=== PATIENT | female | born 1990 | race Caucasian/White ===

== ENCOUNTER 2017-08-17 23:01 | Emergency (ER) | payer OTHER ==
[~2017-08-17] VITALS: Ht 154.9 cm; Wt 55.0 kg
[2017-08-17 23:14] VITALS: BP 115/72; PULSE 87; RESP 18; TEMP 98.1; O2SAT 98
[2017-08-18 00:22] LABS: AUTOMATED NEUTROPHIL # 4.2 TH/MM3 (1.8-7.7); BASOPHIL % 0.5 % (0.0-2.0); EOSINOPHIL % 0.7 % (0.0-4.0); HEMO FLAGS DIFF FINAL; LYMPH % 24.6 % (9.0-44.0); LYMPHOCYTE # 1.5 TH/MM3 (1.0-4.8); MEAN CELL VOLUME 94.9 FL (80.0-100.0); MEAN CORPUSCULAR HEMOGLOBIN 32.8 PG (27.0-34.0); MEAN CORPUSCULAR HGB CONC 34.6 % (32.0-36.0); NEUT % 67.2 % (16.0-70.0); PLATELET COUNT 329 TH/MM3 (150-450); RED BLOOD COUNT 4.31 MIL/MM3 (4.00-5.30); RED CELL DISTRIBUTION WIDTH 12.7 % (11.6-17.2); WHITE BLOOD COUNT 6.3 TH/MM3 (4.0-11.0)
[2017-08-18 00:26] LABS: BACTERIA, URINE RARE /hpf; BLOOD, URINE SMALL (NEG); GLUCOSE,URINE NEG (NEG); HYALINE CAST, URINE 4 /lpf (RARE); KETONE, URINE TRACE mg/dL (NEG); MUCUS URINE MANY /lpf (OCC); NITRITE,URINE NEG (NEG); PH, URINE 5.5 (5.0-8.5); RENAL EPITHELIAL CELLS <1 /hpf; SQUAMOUS EPITHELIAL CELL URINE 1 /hpf (0-5); URINE COLOR YELLOW (YELLW/STRAW)
[2017-08-18 00:27] LABS: COMMENT (UR) CULT NOT INDICATED; CULTURE IF INDICATED CULT NOT INDICATED
--- NOTE | 2017-08-18 00:28 | PD ---
HPI Chief Complaint: Psychiatric Symptoms Time Seen by Provider: 00:26 Travel History International Travel<30 days: No Contact w/Intl Traveler<30days: No Traveled to known affect area: No History of Present Illness HPI Patient comes in under a Servin act by police for allegedly making suicidal statements. Patient states that her boyfriend and her were going through breakup when he managed to get her Servin acted. Patient denies any suicidal or homicidal ideations. Patient denies any medical complaints at this time. Denies any chest pain, fevers, shortness of breath, abdominal pain, urgency, loss change in bowel or bladder, or . Denies anything making this better or worse. PFSH Past Medical History Medical History: Denies Significant Hx Diminished Hearing: No Tetanus Vaccination: Unknown ?: Not LMP: 08/15/2017 Past Surgical History Section: Yes Gynecologic Surgery: Yes () Social History Alcohol Use: Yes (occasionally) Tobacco Use: No Substance Use: No Allergies-Medications (Allergen,Severity, Reaction): Coded Allergies: No Known Allergies (Unverified , 08/17/17) Reported Meds & Prescriptions Reported Meds & Active Scripts Active No Active Prescriptions or Reported Medications Review of Systems Except as stated in HPI: all other systems reviewed are Neg Physical Exam Narrative GENERAL: Well-developed, well nourished, in no acute distress, and non-ill appearing. SKIN: Focused skin assessment warm and dry. HEAD: Atraumatic. Normocephalic. EYES: Pupils equal and round. EOMI. No scleral icterus. No injection or drainage. ENT: No nasal bleeding or discharge. Mucous membranes pink and moist. NECK: Trachea midline. Supple. No nuclear rigidity. CARDIOVASCULAR: Regular rate and rhythm. No murmur appreciated. RESPIRATORY: No accessory muscle use. No respiratory distress. Clear to auscultation. Breath sounds equal bilaterally. MUSCULOSKELETAL: No obvious deformities. No clubbing. No cyanosis. No edema. Full range of motion. NEUROLOGICAL: Awake and alert. No obvious cranial nerve deficits. Motor grossly within normal limits. Normal speech. PSYCHIATRIC: Appropriate mood and affect; insight and judgment normal. Data Data Last Documented VS Vital Signs Date Time Temp Pulse Resp B/P (MAP) Pulse Ox O2 Delivery O2 Flow Rate FiO2 08/17/17 23:14 98.1 87 18 115/72 (86) 98 Orders Orders Complete Blood Count With Diff (08/17/17 23:49) Comprehensive Metabolic Panel (08/17/17 23:49) Urinalysis - C+S If Indicated (08/17/17 23:49) Ed Urine Pregnancytest Poc (08/17/17 23:49) Psych Screen (08/17/17 23:49) Drug Screen, Random Urine (08/17/17 23:49) Alcohol (Ethanol) (08/17/17 23:49) Salicylates (Aspirin) (08/18/17 00:10) Tylenol (Acetaminophen) (08/17/17 23:58) Labs Laboratory Tests Test 08/17/17 23:58 White Blood Count 6.3 TH/MM3 Red Blood Count 4.31 MIL/MM3 Hemoglobin 14.2 GM/DL Hematocrit 41.0 % Mean Corpuscular Volume 94.9 FL Mean Corpuscular Hemoglobin 32.8 PG Mean Corpuscular Hemoglobin Concent 34.6 % Red Cell Distribution Width 12.7 % Platelet Count 329 TH/MM3 Mean Platelet Volume 9.3 FL Neutrophils (%) (Auto) 67.2 % Lymphocytes (%) (Auto) 24.6 % Monocytes (%) (Auto) 7.0 % Eosinophils (%) (Auto) 0.7 % Basophils (%) (Auto) 0.5 % Neutrophils # (Auto) 4.2 TH/MM3 Lymphocytes # (Auto) 1.5 TH/MM3 Monocytes # (Auto) 0.4 TH/MM3 Eosinophils # (Auto) 0.0 TH/MM3 Basophils # (Auto) 0.0 TH/MM3 CBC Comment DIFF FINAL Differential Comment Urine Color YELLOW Urine Turbidity HAZY Urine pH 5.5 Urine Specific [place] 1.020 Urine Protein TRACE mg/dL Urine Glucose (UA) NEG mg/dL Urine Ketones TRACE mg/dL Urine Occult Blood SMALL Urine Nitrite NEG Urine Bilirubin NEG Urine Urobilinogen LESS THAN 2.0 MG/DL Urine Leukocyte Esterase TRACE Urine RBC 2 /hpf Urine WBC 4 /hpf Urine Squamous Epithelial Cells 1 /hpf Urine Renal Epithelial Cells <1 /hpf Urine Bacteria RARE /hpf Urine Hyaline Casts 4 /lpf Urine Mucus MANY /lpf Microscopic Urinalysis Comment CULT NOT INDICATED Blood Urea Nitrogen 4 MG/DL Creatinine 0.61 MG/DL Random Glucose 87 MG/DL Total Protein 8.1 GM/DL Albumin 3.9 GM/DL Calcium Level 9.1 MG/DL Alkaline Phosphatase 56 U/L Aspartate Amino Transf (AST/SGOT) 11 U/L Alanine Aminotransferase (ALT/SGPT) 14 U/L Total Bilirubin 0.4 MG/DL Sodium Level 143 MEQ/L Potassium Level 3.7 MEQ/L Chloride Level 107 MEQ/L Carbon Dioxide Level 27.2 MEQ/L Anion Gap 9 MEQ/L Estimat Glomerular Filtration Rate 119 ML/MIN Salicylates Level LESS THAN 1.7 MG/DL Urine Opiates Screen NEG Acetaminophen Level LESS THAN 2.0 MCG/ML Urine Barbiturates Screen NEG Urine Amphetamines Screen POS Urine Benzodiazepines Screen NEG Urine Cocaine Screen NEG Urine Cannabinoids Screen NEG Ethyl Alcohol Level 74 MG/DL MDM Medical Decision Making Medical Screen Exam Complete: Yes Emergency Medical Condition: Yes Differential Diagnosis Homicidal, suicidal, metabolic disturbance, alcohol induced mood disorder, substance induced mood disorder, acute psychosis, other Narrative Course Patient was seen and examined. Labs were obtained and reviewed. Patient medically cleared for further treatment and evaluation by psych. Final disposition per psych. Diagnosis Primary Impression: Medical clearance for psychiatric admission Scripts No Active Prescriptions or Reported Meds Condition: Janusz Whitten Aug 18, 2017 00:28
[2017-08-18 00:41] LABS: ALT (GPT) 14 U/L (10-53); ANION GAP 9 MEQ/L (5-15); AST (GOT) 11 U/L (15-37); BICARBONATE 27.2 MEQ/L (21.0-32.0); BLOOD UREA NITROGEN 4 MG/DL (7-18); CHLORIDE 107 MEQ/L (98-107); GLOMERULAR FILTRATION RATE 119 ML/MIN (>89); POTASSIUM 3.7 MEQ/L (3.5-5.1); SODIUM (NA) 143 MEQ/L (136-145)
[2017-08-18 00:44] LABS: ALKALINE PHOSPHATASE 56 U/L (45-117); TOTAL BILIRUBIN ADULT 0.4 MG/DL (0.2-1.0)
[2017-08-18 00:45] LABS: ACETAMINOPHEN LESS THAN 2.0 MCG/ML (10.0-30.0); ALCOHOL 74 MG/DL (0-5)
[2017-08-18 06:28] VITALS: BP 92/55; PULSE 79; RESP 16; O2SAT 100
--- NOTE | 2017-08-18 14:23 | PD ---
History of Present Illness Chief Complaint: Psychiatric Symptoms Time Seen by Provider: 14:00 Travel History International Travel<30 Days: No Contact w/Intl Traveler<30days: No Known affected area: No Legal Status Legal Status: Servin Act Servin Act Signed By: Dmitri Richardson History of Present Illness: History of Present Illness HPI Patient is a 26-year-old female with no previous psychiatric history who comes in under a Servin act initiated by police . The Servin act alleges that the police responded to a call in reference to a suicidal person. When they arrived the patient's boyfriend reported that he and Linda were in the middle of breaking up and that the patient had made several statements that she was going to harm herself. He provided text messages that were allegedly written from her which stated to him" who was going to take care of my daughter when I' m gone." She denies that she made these statements as well as she denies any suicidal or homicidal ideation. She made no attempts at harming herself and denies any cutting or self-injurious behaviors. She states that she has been arguing with her boyfriend for some time. Electronic medical record is reviewed. No previous history with [facility] psychiatry Department. Current toxicology is positive for amphetamines. She denies any use of such. BAL on arrival is 74. Patient was monitored and secure environment and presented no behavioral concerns and no suicidality. She denies any previous psychiatric history. Denies any depression or anxiety Has no access to guns or any weapons. She is requesting to be discharged and states that her daughter has a soccer game today of 5 p. m. and that she wants to be able to go to that game. [facility] Past Medical History Medical History: Denies Significant Hx Diminished Hearing: No Tetanus Vaccination: Unknown ?: Not LMP: 08/15/2017 Past Surgical History Section: Yes Gynecologic Surgery: Yes () Psychiatric History Psychiatric History Hx Psychiatric Treatment: DENIES any previous. No previous history of suicide attempts. History of Inpatient Treatment: No Guns or firearms in home: No Social History Born and raised in [facility]. Single. 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 Lives with boyfriend and her 4-year-old daughter. Hx Alcohol Use: Yes (occasionally) Hx Tobacco Use: No Hx Substance Use: No (denies any history of any substance use despite positive amphetamine in her toxicology.) Substance Use Type: Alcohol, Amphetamines-Stimulants Hx of Substance Use Treatment: No Family Psychiatric History None reported Allergies-Medications (Allergen,Severity, Reaction): Coded Allergies: No Known Allergies (Unverified , 08/17/17) Reported Meds & Prescriptions Reported Meds & Active Scripts Active No Active Prescriptions or Reported Medications Review of Systems Except as stated in HPI: all other systems reviewed are Neg Mental Status Examination Appearance: Appropriate (maintaining basic hygiene) Consciousness: Alert Orientation: x4 Motor Activity: Normal gait Speech: Unremarkable Language: Adequate Fund of Knowledge: Adequate Attention and Concentration: Adequate Memory: Unremarkable Mood: Appropriate Affect: Appropriate Thought Process & Associations: Intact Thought Content: Appropriate Hallucination Type: None Delusion Type: None Suicidal Ideation: No Suicidal Plan: No Suicidal Intention: No Homicidal Ideation: No Homicidal Plan: No Homicidal Intention: No Insight: Adequate Judgment: Adequate MDM Medical Decision Making Medical Record Reviewed: Yes Assessment/Plan Patient is a 26-year-old female with no previous psychiatric history who comes in under a Servin act initiated by police for allegedly having sent text messages to her boyfriend indicating she was thinking of harming herself. This in context of an argument with her boyfriend and possibly ending the relationship. She made no attempts at harming herself. Denies any suicidal or homicidal ideation. No psychosis no alonzo. Patient is future oriented with adequate protective factors. She states she has a good live and has a daughter that she needs to take care of. At this time she is requesting to be discharged to attend her daughter's soccer game. Patient contracts for safety There is no criteria to keep her under the Servin act at this time. The Servin act will be lifted. Discharge to self. Orders Orders Complete Blood Count With Diff (08/17/17 23:49) Comprehensive Metabolic Panel (08/17/17 23:49) Urinalysis - C+S If Indicated (08/17/17 23:49) Ed Urine Pregnancytest Poc (08/17/17 23:49) Psych Screen (08/17/17 23:49) Drug Screen, Random Urine (08/17/17 23:49) Alcohol (Ethanol) (08/17/17 23:49) Salicylates (Aspirin) (08/18/17 00:10) Tylenol (Acetaminophen) (08/17/17 23:58) Diet Regular Basic (08/18/17 Breakfast) Diet Regular Basic (08/18/17 Lunch) Results Vital Signs Date Time Temp Pulse Resp B/P (MAP) Pulse Ox O2 Delivery O2 Flow Rate FiO2 08/18/17 06:28 79 16 92/55 (67) 100 Room Air 08/17/17 23:14 98.1 87 18 115/72 (86) 98 Laboratory Tests Test 08/17/17 23:58 White Blood Count 6.3 Red Blood Count 4.31 Hemoglobin 14.2 Hematocrit 41.0 Mean Corpuscular Volume 94.9 Mean Corpuscular Hemoglobin 32.8 Mean Corpuscular Hemoglobin Concent 34.6 Red Cell Distribution Width 12.7 Platelet Count 329 Mean Platelet Volume 9.3 Neutrophils (%) (Auto) 67.2 Lymphocytes (%) (Auto) 24.6 Monocytes (%) (Auto) 7.0 Eosinophils (%) (Auto) 0.7 Basophils (%) (Auto) 0.5 Neutrophils # (Auto) 4.2 Lymphocytes # (Auto) 1.5 Monocytes # (Auto) 0.4 Eosinophils # (Auto) 0.0 Basophils # (Auto) 0.0 CBC Comment DIFF FINAL Differential Comment Urine Color YELLOW Urine Turbidity HAZY Urine pH 5.5 Urine Specific [place] 1.020 Urine Protein TRACE Urine Glucose (UA) NEG Urine Ketones TRACE Urine Occult Blood SMALL Urine Nitrite NEG Urine Bilirubin NEG Urine Urobilinogen LESS THAN 2.0 Urine Leukocyte Esterase TRACE Urine RBC 2 Urine WBC 4 Urine Squamous Epithelial Cells 1 Urine Renal Epithelial Cells <1 Urine Bacteria RARE Urine Hyaline Casts 4 Urine Mucus MANY Microscopic Urinalysis Comment CULT NOT INDICATED Blood Urea Nitrogen 4 Creatinine 0.61 Random Glucose 87 Total Protein 8.1 Albumin 3.9 Calcium Level 9.1 Alkaline Phosphatase 56 Aspartate Amino Transf (AST/SGOT) 11 Alanine Aminotransferase (ALT/SGPT) 14 Total Bilirubin 0.4 Sodium Level 143 Potassium Level 3.7 Chloride Level 107 Carbon Dioxide Level 27.2 Anion Gap 9 Estimat Glomerular Filtration Rate 119 Salicylates Level LESS THAN 1.7 Urine Opiates Screen NEG Acetaminophen Level LESS THAN 2.0 Urine Barbiturates Screen NEG Urine Amphetamines Screen POS Urine Benzodiazepines Screen NEG Urine Cocaine Screen NEG Urine Cannabinoids Screen NEG Ethyl Alcohol Level 74 Diagnosis Primary Impression: Substance induced mood disorder Psychiatrically Cleared: Yes Med/ Other Pt Specific Info: No Meds Exist/No RX given Prescriptions No Active Prescriptions or Reported Meds Disposition: 01 DISCHARGE HOME Condition: Stable Shruti Hermosillo TECHNICIAN Aug 18, 2017 14:22
--- NOTE | 2017-08-18 14:39 | PD ---
Physical Exam Time Seen by Provider: 14:29 Data Data Last Documented VS Vital Signs Date Time Temp Pulse Resp B/P (MAP) Pulse Ox O2 Delivery O2 Flow Rate FiO2 08/18/17 06:28 79 16 92/55 (67) 100 Room Air 08/17/17 23:14 98.1 Orders Orders Complete Blood Count With Diff (08/17/17 23:49) Comprehensive Metabolic Panel (08/17/17 23:49) Urinalysis - C+S If Indicated (08/17/17 23:49) Ed Urine Pregnancytest Poc (08/17/17 23:49) Psych Screen (08/17/17 23:49) Drug Screen, Random Urine (08/17/17 23:49) Alcohol (Ethanol) (08/17/17 23:49) Salicylates (Aspirin) (08/18/17 00:10) Tylenol (Acetaminophen) (08/17/17 23:58) Diet Regular Basic (08/18/17 Breakfast) Diet Regular Basic (08/18/17 Lunch) Labs Laboratory Tests Test 08/17/17 23:58 White Blood Count 6.3 TH/MM3 Red Blood Count 4.31 MIL/MM3 Hemoglobin 14.2 GM/DL Hematocrit 41.0 % Mean Corpuscular Volume 94.9 FL Mean Corpuscular Hemoglobin 32.8 PG Mean Corpuscular Hemoglobin Concent 34.6 % Red Cell Distribution Width 12.7 % Platelet Count 329 TH/MM3 Mean Platelet Volume 9.3 FL Neutrophils (%) (Auto) 67.2 % Lymphocytes (%) (Auto) 24.6 % Monocytes (%) (Auto) 7.0 % Eosinophils (%) (Auto) 0.7 % Basophils (%) (Auto) 0.5 % Neutrophils # (Auto) 4.2 TH/MM3 Lymphocytes # (Auto) 1.5 TH/MM3 Monocytes # (Auto) 0.4 TH/MM3 Eosinophils # (Auto) 0.0 TH/MM3 Basophils # (Auto) 0.0 TH/MM3 CBC Comment DIFF FINAL Differential Comment Urine Color YELLOW Urine Turbidity HAZY Urine pH 5.5 Urine Specific [place] 1.020 Urine Protein TRACE mg/dL Urine Glucose (UA) NEG mg/dL Urine Ketones TRACE mg/dL Urine Occult Blood SMALL Urine Nitrite NEG Urine Bilirubin NEG Urine Urobilinogen LESS THAN 2.0 MG/DL Urine Leukocyte Esterase TRACE Urine RBC 2 /hpf Urine WBC 4 /hpf Urine Squamous Epithelial Cells 1 /hpf Urine Renal Epithelial Cells <1 /hpf Urine Bacteria RARE /hpf Urine Hyaline Casts 4 /lpf Urine Mucus MANY /lpf Microscopic Urinalysis Comment CULT NOT INDICATED Blood Urea Nitrogen 4 MG/DL Creatinine 0.61 MG/DL Random Glucose 87 MG/DL Total Protein 8.1 GM/DL Albumin 3.9 GM/DL Calcium Level 9.1 MG/DL Alkaline Phosphatase 56 U/L Aspartate Amino Transf (AST/SGOT) 11 U/L Alanine Aminotransferase (ALT/SGPT) 14 U/L Total Bilirubin 0.4 MG/DL Sodium Level 143 MEQ/L Potassium Level 3.7 MEQ/L Chloride Level 107 MEQ/L Carbon Dioxide Level 27.2 MEQ/L Anion Gap 9 MEQ/L Estimat Glomerular Filtration Rate 119 ML/MIN Salicylates Level LESS THAN 1.7 MG/DL Urine Opiates Screen NEG Acetaminophen Level LESS THAN 2.0 MCG/ML Urine Barbiturates Screen NEG Urine Amphetamines Screen POS Urine Benzodiazepines Screen NEG Urine Cocaine Screen NEG Urine Cannabinoids Screen NEG Ethyl Alcohol Level 74 MG/DL [facility] Medical Record Reviewed: Yes Supervised Visit with KENTRELL: No Narrative Course Please see previous providers notes. Her Servin act has been lifted by the psychiatry team and she has been cleared by psychiatry. She has no medical complaint at this time. Diagnosis Primary Impression: Substance induced mood disorder Scripts No Active Prescriptions or Reported Meds Disposition: 01 DISCHARGE HOME Condition: Stable Faheem Adams Aug 18, 2017 14:39
== END 2017-08-18 15:08 | disposition home or self-care (01) ==
LOC: NEDAMB 23:01 → NEPJ 08-18 15:08
DX: F39 Unspecified mood [affective] disorder (principal); F15.90 Other stimulant use, unspecified, uncomplicated
CPT/HCPCS: 80053; 80307; 81001; 84703; 85025; 99284